=== PATIENT | male | born 1985 | race African-American/Black ===

== ENCOUNTER 2017-04-28 11:59 | Emergency (ER) | payer SELFPAY ==
[~2017-04-28] VITALS: Ht 188 cm; Wt 145.0 kg
[2017-04-28 12:37] VITALS: BP 158/99
== END 2017-04-28 13:22 | disposition home or self-care (01) ==
LOC: ER 12:44
DX: S70.311A Abrasion, right thigh, initial encounter (principal); L03.115 Cellulitis of right lower limb; X58.XXXA Exposure to other specified factors, initial encounter; Y93.89 Activity, other specified; Y92.098 Other place in other non-institutional residence as the place of occurrence of the external cause
CPT/HCPCS: 99283; Z7610

== ENCOUNTER 2017-05-08 17:59 | Emergency (ER) | payer MEDICAID ==
[~2017-05-08] VITALS: Ht 188 cm; Wt 136.0 kg
[2017-05-08 22:32] VITALS: BP 148/106
== END 2017-05-09 00:06 | disposition home or self-care (01) ==
LOC: ER 17:59
DX: Z48.00 Encounter for change or removal of nonsurgical wound dressing (principal); L25.9 Unspecified contact dermatitis, unspecified cause; F12.90 Cannabis use, unspecified, uncomplicated
CPT/HCPCS: 99282